=== PATIENT | male | born 1980 | race Caucasian/White ===

== ENCOUNTER 2018-01-29 22:22 | Inpatient (IN) ==
[2018-01-29 23:19] LABS: Baso % (Auto) 0.4 % (0.0-2.0); Eos # (Auto) 0.8 th/mm3 (0.0-0.4); Eos % (Auto) 9.1 % (0.0-4.0); Hematocrit 39.9 % (39.0-51.0); Hemoglobin 14.3 gm/dL (13.0-17.0); Lymph # (Auto) 3.1 th/mm3 (1.0-4.8); Mean Corpuscular Hemoglobin 33.3 pg (27.0-34.0); Mean Corpuscular Volume 92.5 fL (80.0-100.0); Mean Platelet Volume 8.8 fL (7.0-11.0); Mono # (Auto) 0.8 th/mm3 (0.0-0.9); Mono % (Auto) 8.9 % (0.0-8.0); Neut # (Auto) 4.4 th/mm3 (1.8-7.7); Neut % (Auto) 47.6 % (16.0-70.0); Platelet Count 249 th/mm3 (150-450); Red Blood Count 4.31 mil/mm3 (4.50-5.90); Red Cell Distribution Width 13.5 % (11.6-17.2); White Blood Count 9.2 th/mm3 (4.0-11.0)
[2018-01-29 23:33] LABS: Alcohol 282 mg/dL (0-5); Anion Gap 10 meq/L (5-15); Blood Urea Nitrogen 12 mg/dL (7-18); C-Reactive Protein 0.63 mg/dL (0.00-0.30); Calcium 7.9 mg/dL (8.5-10.1); Carbon Dioxide 23.9 meq/L (21.0-32.0); Chloride 108 meq/L (98-107); Glomerular Filtration Rate Greater Than 89 mL/min (>89); Glucose,Random 88 mg/dL (74-106); Potassium 3.8 meq/L (3.5-5.1); Sodium 142 meq/L (136-145)
[2018-01-29] MEDS ORDERED: Ampicillin/Sulbactam Inj 3 GM in Sodium Chloride 0.9% Inj 100 ML IV.SIG ONE (23:41)
[2018-01-29] MEDS ORDERED: Tetanus/Diphtheria Toxoid Adult Vaccine Inj 0.5 ML Vial IM ONE (23:45)
--- NOTE | 2018-01-29 23:45 | ED ---
HPI General Chief Complaint: Animal Bite Stated Complaint: Dog Bite x 5 days Time Seen by Provider: 01/29/18 22:34 Source: patient Mode of arrival: ambulatory Limitations: no limitations History of Present Illness HPI narrative: The patient is a 37-year-old male with no medical history presenting for evaluation of dog bites on bilateral hands that happened 6 days ago. Patient stated that his girlfriend is a nurse and that he started taking amoxicillin that she had at home and she was cleaning his wounds however it appears that his wounds are getting worse. Animal control was contacted and apparently the dog that was involved in the attack is fully vaccinated. The patient stated that the dog attacked him and his dogs came to his rescue when he was trying to separate the dogs he got mulled. He has bites on bilateral hands upper extremities lower extremities in various healing stages. Patient is here worried about his right middle finger and left pinky which he has not been able to flex since the accident MD complaint: Reports animal bite Onset (ago): day(s) Animal: dog Description of animal: immunizations UTD Mechanism: bite Bilateral: arm, hand and lower leg Pain description: Reports sharp Severity scale (1-10): 7 Context: Reports unprovoked Associated symptoms: Reports other (unable to flex left 5th digit) Related Data Patient tetanus UTD: No Home Medications Medication Instructions Recorded Confirmed No Known Home Medications 01/29/18 01/29/18 Allergies Allergy/AdvReac Type Severity Reaction Status Date / Time No Known Allergies Allergy Verified 01/29/18 22:30 Review of Systems ROS: all other systems reviewed are negative [facility] Medical History Medical History Patient denies medical problems (Acute) Surgical History Surgical History No history of previous surgery (Acute) Family History Family History Other Family history normal Social History Social History Substance History: Active Abuse Second Hand Smoke Exposure: No Smoking Status: Current every day smoker Tobacco Type: Cigarettes How Often Do You Have a Drink Containing Alcohol: 2 to 3 times a week Recent Travel in [facility] within the Last 8 Weeks: No Recent Out of Country Travel within the Last 8 Weeks: No Substance Abuse Detail Marijuana: Substance Use Status: Active Route Used Substance Abuse: Inhalation Substance Frequency: "few times a week" Reason for Use: Get High Immunization History Tetanus Immunization: >5 Years Exam Narrative Exam Narrative: GENERAL: Alert and oriented no distress SKIN: Focused skin assessment warm/dry. HEAD: Atraumatic. Normocephalic. EYES: Pupils equal and round. No scleral icterus. No injection or drainage. ENT: No nasal bleeding or discharge. Mucous membranes pink and moist. NECK: Trachea midline. No JVD. CARDIOVASCULAR: Regular rate and rhythm. No murmur appreciated. RESPIRATORY: No accessory muscle use. Clear to auscultation. Breath sounds equal bilaterally. GASTROINTESTINAL: Abdomen soft, non-tender, nondistended. Hepatic and splenic margins not palpable. MUSCULOSKELETAL: Patient with healing scabs on bilateral upper and lower extremities. Various healing stages. Right hand of the distal aspect of the middle finger With significant swelling ecchymotic with a healing wound that appears to be infected on the radial aspect of the finger. There is another dog bite on the distal aspect of the right fifth digit also appears infected and multiple other bite navarro and abrasions on proximal hand. Left hand with an infected bite over the MIP of the fifth digit. Patient is unable to flex the digit. Marked tenderness to palpation. cap refill intract NEUROLOGICAL: Awake and alert. No obvious cranial nerve deficits. Motor grossly within normal limits. Normal speech. PSYCHIATRIC: Appropriate mood and affect; insight and judgment normal. Course Initial Documented Vital Signs Temperature 97.6 F 01/29/18 22:24 Pulse Rate 105 H 01/29/18 22:24 Respiratory Rate 20 01/29/18 22:24 Blood Pressure 119/78 01/29/18 22:24 Pulse Oximetry 97 01/29/18 22:24 Last Documented Vital Signs Temperature 97.3 F L 01/30/18 03:47 Pulse Rate 79 01/30/18 03:47 Respiratory Rate 18 01/30/18 03:47 Blood Pressure 95/60 L 01/30/18 03:47 Pulse Oximetry 95 01/30/18 03:47 Medical Decision Making [facility] Narrative Medical decision making narrative: Patient with multiple injuries of bilateral hands that include a dislocation of the DIP on the left fifth digit as well as a fracture of the distal third right digit. Infection also noted he was started on Unasyn. Not appearing septic. No lactic acidosis. CRP of 0.63. CT of both hands was obtained due to extensive injury and readings are included in this chart. Tetanus was updated. Medical Screen Exam Complete: Yes Emergency Medical Condition: Yes Medical Records Medical records reviewed: Yes I reviewed the patient's medical records. Lab Data Lab results reviewed: Yes I reviewed the patient's lab results. Result diagrams: 01/29/18 23:05 01/29/18 23:05 Lab Results 01/29/18 01/29/18 01/29/18 Range/Units 23:05 23:05 23:05 WBC 9.2 (4.0-11.0) th/mm3 RBC 4.31 L (4.50-5.90) mil/mm3 Hgb 14.3 (13.0-17.0) gm/dL Hct 39.9 (39.0-51.0) % MCV 92.5 (80.0-100.0) fL MCH 33.3 (27.0-34.0) pg MCHC 36.0 (32.0-36.0) % RDW 13.5 (11.6-17.2) % Plt Count 249 (150-450) th/mm3 MPV 8.8 (7.0-11.0) fL Prelim Diff (Auto) Slide review pending Neut % (Auto) 47.6 (16.0-70.0) % Lymph % (Auto) 34.0 (9.0-44.0) % [place] % (Auto) 8.9 H (0.0-8.0) % Eos % (Auto) 9.1 H (0.0-4.0) % Baso % (Auto) 0.4 (0.0-2.0) % Neut # (Auto) 4.4 (1.8-7.7) th/mm3 Lymph # (Auto) 3.1 (1.0-4.8) th/mm3 [place] # (Auto) 0.8 (0.0-0.9) th/mm3 Eos # (Auto) 0.8 H (0.0-0.4) th/mm3 Baso # (Auto) 0.0 (0.0-0.2) th/mm3 WBC Differential Manual diff final Seg Neuts % (Manual) 54 (16-70) % Lymphocytes % (Manual) 34 (9-44) % Monocytes % (Manual) 6 (0-8) % Eosinophils % (Manual) 4 (0-4) % Basophils % (Manual) 1 (0-2) % Blast Cells % (Manual) 1 H (0-0) % Abs Neuts (Manual) 5.0 (1.8-7.7) th/mm3 Differential Comment . Platelet Estimate Normal (Normal) Platelet Morphology Normal (Normal) RBC Morphology Normal (Normal) ESR (0-15) mm/hr Sodium 142 (136-145) meq/L Potassium 3.8 (3.5-5.1) meq/L Chloride 108 H (98-107) meq/L Carbon Dioxide 23.9 (21.0-32.0) meq/L Anion Gap 10 (5-15) meq/L BUN 12 (7-18) mg/dL Creatinine 0.75 (0.60-1.30) mg/dL Estimated GFR Greater than 89 (>89) mL/min Random Glucose 88 (74-106) mg/dL Lactic Acid 1.5 (0.4-2.0) mmol/L Calcium 7.9 L (8.5-10.1) mg/dL C-Reactive Protein 0.63 H (0.00-0.30) mg/dL Serum Alcohol 282 H (0-5) mg/dL 01/29/18 Range/Units 23:05 WBC (4.0-11.0) th/mm3 RBC (4.50-5.90) mil/mm3 Hgb (13.0-17.0) gm/dL Hct (39.0-51.0) % MCV (80.0-100.0) fL MCH (27.0-34.0) pg MCHC (32.0-36.0) % RDW (11.6-17.2) % Plt Count (150-450) th/mm3 MPV (7.0-11.0) fL Prelim Diff (Auto) Neut % (Auto) (16.0-70.0) % Lymph % (Auto) (9.0-44.0) % [place] % (Auto) (0.0-8.0) % Eos % (Auto) (0.0-4.0) % Baso % (Auto) (0.0-2.0) % Neut # (Auto) (1.8-7.7) th/mm3 Lymph # (Auto) (1.0-4.8) th/mm3 [place] # (Auto) (0.0-0.9) th/mm3 Eos # (Auto) (0.0-0.4) th/mm3 Baso # (Auto) (0.0-0.2) th/mm3 WBC Differential Seg Neuts % (Manual) (16-70) % Lymphocytes % (Manual) (9-44) % Monocytes % (Manual) (0-8) % Eosinophils % (Manual) (0-4) % Basophils % (Manual) (0-2) % Blast Cells % (Manual) (0-0) % Abs Neuts (Manual) (1.8-7.7) th/mm3 Differential Comment Platelet Estimate (Normal) Platelet Morphology (Normal) RBC Morphology (Normal) ESR 3 (0-15) mm/hr Sodium (136-145) meq/L Potassium (3.5-5.1) meq/L Chloride (98-107) meq/L Carbon Dioxide (21.0-32.0) meq/L Anion Gap (5-15) meq/L BUN (7-18) mg/dL Creatinine (0.60-1.30) mg/dL Estimated GFR (>89) mL/min Random Glucose (74-106) mg/dL Lactic Acid (0.4-2.0) mmol/L Calcium (8.5-10.1) mg/dL C-Reactive Protein (0.00-0.30) mg/dL Serum Alcohol (0-5) mg/dL Imaging Data Radiologist's impression: Hand CT 01/29/18 22:49 CONCLUSION: 1. Fracture distal phalanx of the third finger with overlying soft tissues swelling. Hand CT 01/29/18 22:49 CONCLUSION: 1. Subluxation at the proximal interphalangeal joint of the fifth finger with some soft tissue swelling. No definite fracture or loculated fluid collection. Discharge Plan Discharge Disposition Patient Disposition: 30 Still Patient Discharge Condition Condition: Stable Discharge Details Diagnosis: Dog bite, Subluxation of left little finger, Fracture of finger of right hand, Alcohol intoxication Physicians Team ED Provider: Shaw Correa Primary Care Provider: Primary Care Kandy Mueller Attending Provider: Yareli Escalona Discharge Interventions Interventions: ED Discharge Assessment Last Done: 01/30/18 02:32 Vital Signs Last Done: 01/30/18 02:02 Status ED Status: Left Department Discharge Information Discharge Date/Time: 01/30/18 02:42
[2018-01-29 23:52] LABS: Blast Cells 1 % (0-0); Eosinophils 4 % (0-4); Lymphocytes 34 % (9-44); Monocytes 6 % (0-8); Platelet Estimate Normal (Normal); Platelet Morphology Normal (Normal); RBC Morphology Normal (Normal)
--- NOTE | 2018-01-30 00:20 | CT ---
EXAM DATE: 01/29/2018 11:54 PM EST AGE/SEX: 37 years / Male INDICATIONS: Dog bite, swelling. CLINICAL DATA: This is the patient's initial encounter. Patient reports that signs and symptoms have been present for 4 - 6 days and indicates a pain score of 5/10. MEDICAL/SURGICAL HISTORY: None. None. RADIATION DOSE: 3.37 CTDI (mGy) ; Combined studies COMPARISON: No prior exams available for comparison. TECHNIQUE: Multiple contiguous axial images were acquired using a multi-row detector CT scanner afte r the intravenous administration of 100 ml Omnipaque 350 (iohexol) nonionic water-soluble contrast a s a cumulative dose for multiple exams. Multiplanar reconstruction was performed in the sagittal an d coronal planes. Using automated exposure control and adjustment of the mA and/or kV according to p atient size, radiation dose was kept as low as reasonably achievable to obtain optimal diagnostic kiko lity images. DICOM format image data is available electronically for review and comparison. FINDINGS: There is a fracture of the distal phalanx of the third finger with overlying soft tissue swelling. No other fracture identified. No loculated fluid collections. CONCLUSION: 1. Fracture distal phalanx of the third finger with overlying soft tissues swelling. Electronically signed by: Reggie Sanchez MD 01/30/2018 12:19 AM EST
--- NOTE | 2018-01-30 00:39 | CT ---
EXAM DATE: 01/30/2018 12:07 AM EST AGE/SEX: 37 years / Male INDICATIONS: Dog bite 6 days ago, swelling. CLINICAL DATA: This is the patient's initial encounter. Patient reports that signs and symptoms have been present for 4 - 6 days and indicates a pain score of 5/10. MEDICAL/SURGICAL HISTORY: None. None. RADIATION DOSE: 3.37 CTDI (mGy) ; Combined studies COMPARISON: No prior exams available for comparison. TECHNIQUE: Multiple contiguous axial images were acquired using a multi-row detector CT scanner afte r the intravenous administration of 100 ml Omnipaque 350 (iohexol) nonionic water-soluble contrast a s a cumulative dose for multiple exams. Multiplanar reconstruction was performed in the sagittal an d coronal planes. Using automated exposure control and adjustment of the mA and/or kV according to p atient size, radiation dose was kept as low as reasonably achievable to obtain optimal diagnostic kiko lity images. DICOM format image data is available electronically for review and comparison. FINDINGS: There is posterior subluxation of the middle phalanx of the proximal phalangeal joints of fifth finge r with some overlying soft tissue swelling. No definite fractures identified. No loculated fluid iden tified to suggest abscess. CONCLUSION: 1. Subluxation at the proximal interphalangeal joint of the fifth finger with some soft tissue swell ing. No definite fracture or loculated fluid collection. Electronically signed by: Reggie Sanchez MD 01/30/2018 12:37 AM EST
[2018-01-30] MEDS ORDERED: Bisacodyl 10 MG Supp RECTAL PRN (02:15)
[2018-01-30] MEDS ORDERED: Haloperidol Inj 5 MG/ML Ampul IV.PUSH PRN (02:24)
[2018-01-30] MEDS ORDERED: LORazepam 1 MG Tablet PO PRN (02:24)
--- NOTE | 2018-01-30 02:26 | P.HP ---
History of Present Illness Service: [facility] Primary Care Physician: No Primary Care Physician History of Present Illness: 37-year-old male with no significant past medical history presents to the emergency department for the evaluation of bilateral upper extremity and hand wounds secondary to dog bites. The patient reports that on Friday he was attacked by a dog. He reports that then his dogs joined the fight and he sustained multiple lacerations and bites while trying to separate the dogs. [employer] was contacted and has located the animal and its food preparation worker. Per patient report, he was told by [employer] that the dog was up-to-date on his vaccinations including rabies. The patient denies any fevers or chills. Complains of significant third digit of the right hand pain. Unable to flex or extend that digit. Also complains of left fifth digit pain with inability to flex. No chest pain or shortness of breath. No abdominal pain. No nausea/ vomiting/diarrhea. No focal neurologic deficits. Inpatient Certification: I certify that the inpatient services were ordered in accordance with Medicare regulations governing the order. This includes certification that hospital inpatient services are reasonable and necessary and in the case of services not specified as inpatient-only under 42 CFR 419.22(n), that they are appropriately provided as inpatient services in accordance to with the 2-midnight benchmark under 43 CFR 412.3(e) Estimated Total Length of Stay (Days): 2 Plans for Post Hospital Care: Not yet determined Review of Systems All other systems reviewed negative except as stated in HPI [facility] - History History Provided By: Patient - Medical History Medical History: Medical History (Last Reviewed 01/30/18 @ 02:20 by Yareli Escalona MD) Patient denies medical problems - Surgical History Surgical History: Surgical History (Last Reviewed 01/30/18 @ 02:20 by Yareli Escalona MD) No history of previous surgery - Family History Family History: Family History (Last Updated 01/30/18 @ 02:20 by Yareli Escalona MD) Other Family history normal - Tobacco History Second Hand Smoke Exposure: No Tobacco Use In Past 30 Days: Yes Smoking Status: Current every day smoker Tobacco Type: Cigarettes - Alcohol History How Often Do You Have a Drink Containing Alcohol: 2 to 3 times a week - Substance Use History Substance History: Active Abuse - Substance Use Type Marijuana Status: Active Route Used: Inhalation Frequency: "few times a week" Reason for Use: Get High - Travel History Recent Travel in the [place] Within the Last 8 Weeks: No Recent Travel Out of the Country Within the Last 8 Weeks: No - Immunization History Tetanus Immunization: >5 Years Medications and Allergies Active Medications: Active Medications Acetaminophen (Tylenol) 650 mg PO Q4H PRN PRN Reason: Temp > 100.4, pain Al Hydroxide/Mg Hydroxide (Milk Of Magnesia Liq) 30 ml PO Q12H PRN PRN Reason: Mild Constipation Bisacodyl (Dulcolax Supp) 10 mg RECTAL DAILY PRN PRN Reason: SEVERE CONSITIPATION Ampicillin Sodium/Sulbactam (Sodium 3 gm/ Sodium Chloride) 100 mls @ 200 mls/ hr IV.SIG Q6H BOUCHRA Sodium Chloride (Ns Inj) 1,000 mls @ 100 mls/hr IV.CONT .Q10H BOUCHRA Lactulose (Lactulose Liq) 30 ml PO DAILY PRN PRN Reason: SEVERE CONSITIPATION Ondansetron HCl (Zofran Inj) 4 mg IV.PUSH Q6H PRN PRN Reason: NAUSEA OR VOMITING Senna/Docusate Sodium (Radha-Colace) 1 tab PO BID BOUCHRA Sennosides (Senokot) 17.2 mg PO Q12H PRN PRN Reason: Moderate Constipation Allergies Allergy/AdvReac Type Severity Reaction Status Date / Time No Known Allergies Allergy Verified 01/29/18 22:30 Home Medications Medication Instructions Recorded Confirmed Type No Known Home Medications 01/29/18 01/29/18 History Exam Vital signs: Vital Signs 01/29/18 22:24 01/30/18 02:02 Temperature 97.6 F Pulse Rate 105 H 91 H Respiratory Rate 20 16 Blood Pressure 119/78 94/51 L Pulse Oximetry 97 97 Intake & Output 01/29/18 01/29/18 01/30/18 06:59 18:59 06:59 Intake Total 100 / 100 Balance 100 / 100 Weight 72.575 kg Intake: IV 100 / 100 Unasyn Inj 3 GM In NS Inj 100 100 / 100 ML @ 200 mls/hr IV.SIG ONCE ONE Rx#:[id number] Narrative: Gen.: No acute distress Head: Normocephalic. Atraumatic. EENT: Pupils equal round and reactive to light. Nose without drainage. Airway intact. Throat without injection. Cardiovascular: Regular rate and rhythm. No murmurs, rubs or gallops. Respiratory: Lungs clear to auscultation bilaterally. No wheezes or rhonchi. Abdomen: Soft, nontender, nondistended. No peritoneal signs. Musculoskeletal: No edema. Skin: Multiple abrasions and lacerations scattered throughout the bilateral hands. Third digit right hand with significant distal swelling and hematoma. Neuro: Sensory and motor grossly intact. Cranial nerves II through XII grossly intact. Results - Labs CBC & Chem 7: 01/29/18 23:05 01/29/18 23:05 Labs: Laboratory Results - last 24 hr 01/29/18 01/29/18 01/29/18 23:05 23:05 23:05 WBC 9.2 RBC 4.31 L Hgb 14.3 Hct 39.9 MCV 92.5 MCH 33.3 MCHC 36.0 RDW 13.5 Plt Count 249 MPV 8.8 Prelim Diff (Auto) Slide review pending Neut % (Auto) 47.6 Lymph % (Auto) 34.0 [place] % (Auto) 8.9 H Eos % (Auto) 9.1 H Baso % (Auto) 0.4 Neut # (Auto) 4.4 Lymph # (Auto) 3.1 [place] # (Auto) 0.8 Eos # (Auto) 0.8 H Baso # (Auto) 0.0 WBC Differential Manual diff final Seg Neuts % (Manual) 54 Lymphocytes % (Manual) 34 Monocytes % (Manual) 6 Eosinophils % (Manual) 4 Basophils % (Manual) 1 Blast Cells % (Manual) 1 H Abs Neuts (Manual) 5.0 Differential Comment . Platelet Estimate Normal Platelet Morphology Normal RBC Morphology Normal ESR Sodium 142 Potassium 3.8 Chloride 108 H Carbon Dioxide 23.9 Anion Gap 10 BUN 12 Creatinine 0.75 Estimated GFR Greater than 89 Random Glucose 88 Lactic Acid 1.5 Calcium 7.9 L C-Reactive Protein 0.63 H Serum Alcohol 282 H 01/29/18 23:05 WBC RBC Hgb Hct MCV MCH MCHC RDW Plt Count MPV Prelim Diff (Auto) Neut % (Auto) Lymph % (Auto) [place] % (Auto) Eos % (Auto) Baso % (Auto) Neut # (Auto) Lymph # (Auto) [place] # (Auto) Eos # (Auto) Baso # (Auto) WBC Differential Seg Neuts % (Manual) Lymphocytes % (Manual) Monocytes % (Manual) Eosinophils % (Manual) Basophils % (Manual) Blast Cells % (Manual) Abs Neuts (Manual) Differential Comment Platelet Estimate Platelet Morphology RBC Morphology ESR 3 Sodium Potassium Chloride Carbon Dioxide Anion Gap BUN Creatinine Estimated GFR Random Glucose Lactic Acid Calcium C-Reactive Protein Serum Alcohol - Imaging Impressions Hand CT 01/29/18 22:49 CONCLUSION: 1. Fracture distal phalanx of the third finger with overlying soft tissues swelling. Hand CT 01/29/18 22:49 CONCLUSION: 1. Subluxation at the proximal interphalangeal joint of the fifth finger with some soft tissue swelling. No definite fracture or loculated fluid collection. Caprini VTE Risk Assessment Caprini VTE Risk Assessment: No/Low Risk (score <= 1) Caprini Risk Assessment Model: Point Value = 1 Point Value = 2 Point Value = 3 Point Value = 5 Age 41-60 Minor surgery BMI > 25 kg/m2 Swollen legs Varicose veins or History of unexplained or recurrent spontaneous Oral contraceptives or hormone replacement Sepsis (< 1 month) Serious lung disease, including pneumonia (< 1 month) Abnormal pulmonary function Acute myocardial infarction Congestive heart failure (< 1 month) History of inflammatory bowel disease Medical patient at bed rest Age 61-74 Arthroscopic surgery Major open surgery (> 45 min) Laparoscopic surgery (> 45 min) Malignancy Confined to bed (> 72 hours) Immobilizing plaster cast Central venous access Age >= 75 History of VTE Family history of VTE Factor V Leiden Prothrombin [id number] Lupus anticoagulant Anticardiolipin antibodies Elevated serum homocysteine Heparin-induced thrombocytopenia Other congenital or acquired thrombophilia Stroke (< 1 month) Elective arthroplasty Hip, pelvis, or leg fracture Acute spinal cord injury (< 1 month) Prophylaxis Regimen: Total Risk Factor Score Risk Level Prophylaxis Regimen 0-1 Low Early ambulation 2 Moderate Order ONE of the following: *Sequential Compression Device (SCD) *Heparin 5000 units SQ BID 3-4 Higher Order ONE of the following medications: *Heparin 5000 units SQ TID *Enoxaparin/Lovenox 40 mg SQ daily (WT < 150 kg, CrCl > 30 mL/min) *Enoxaparin/Lovenox 30 mg SQ daily (WT < 150 kg, CrCl > 10-29 mL/min) *Enoxaparin/Lovenox 30 mg SQ BID (WT < 150 kg, CrCl > 30 mL/min) AND/OR *Sequential Compression Device (SCD) 5 or more Highest Order ONE of the following medications: *Heparin 5000 units SQ TID (Preferred with Epidurals) *Enoxaparin/Lovenox 40 mg SQ daily (WT < 150 kg, CrCl > 30 mL/min) *Enoxaparin/Lovenox 30 mg SQ daily (WT < 150 kg, CrCl > 10-29 mL/min) *Enoxaparin/Lovenox 30 mg SQ BID (WT < 150 kg, CrCl > 30 mL/min) AND *Sequential Compression Device (SCD) Assessment and Plan - Plan Assessment/plan: 1. Dog bite/finger fracture Right hand CT significant for fracture of the distal phalanx along the third finger with overlying soft tissue swelling. Left hand CT significant for subluxation at the PIP joint of the fifth finger with some soft tissue swelling. Unasyn Hand surgery consulted, appreciate recommendations Wound/blood cultures pending 2. Alcohol intoxication Blood alcohol level 282 on admission [facility] protocol Thiamine/multivitamin Monitor for signs of withdrawal FEN N.p.o. NS at 100 cc/hour Electrolytes: Monitor and replete as needed
[2018-01-30] MEDS: Sod Chloride 0.9% Inj 1,000 ML IV.CONT SCH ×2 (02:41→13:52)
[2018-01-30] MEDS: Acetaminophen 325 MG Tablet PO PRN (03:51)
[2018-01-30] MEDS: Ampicillin/Sulbactam Inj 3 GM in Sodium Chloride 0.9% Inj 100 ML IV.SIG SCH ×3 (05:22→18:00)
[2018-01-30 08:05] LABS: INR 1.1 Ratio; Prothrombin Time 10.8 sec (9.8-11.6)
--- NOTE | 2018-01-30 09:53 | P.PNIM ---
Subjective Interval history: 37yo m w multiple dog bit wounds to b/l upper ext last friday. He has been taking amoxil at home since then, but he has had worsening pain and swelling of right hand and some on left hand, ct in ER showing no abscess but swelling and fracture of distal third fringer and subluxation at pop joint of 5th finger pt seen and examined, states he is doing ok, no nv, no sob, no cp, pain in hands mild improved, no fever Physical Exam Vital signs: Last Vital Signs Temp 98.0 F 01/30/18 08:00 Pulse 86 01/30/18 08:00 Resp 18 01/30/18 08:00 BP 103/59 L 01/30/18 08:00 Pulse Ox 97 01/30/18 08:00 Intake & Output 01/28/18 01/29/18 01/30/18 01/31/18 06:59 06:59 06:59 06:59 Intake Total 620 / 620 Balance 620 / 620 Weight 65.1 kg pleasant [id number] w m nad heart s1s2 reg lungs coarse bs, no wrr, full expansion abd soft nondt pos bs ext b./l uex w multiple abasions and superficial lacerations, right hand nail subungal edema and swelling, left hand 5th digit pain and swelling, warm to touch, pulses intact and sensation appears intact, decreased rom digits due to pain edema R >L no radha edema Results Labs CBC & Chem 7: 01/29/18 23:05 01/29/18 23:05 Imaging Imaging: Impressions Hand CT 01/29/18 22:49 RIGHT hand CONCLUSION: 1. Fracture distal phalanx of the third finger with overlying soft tissues swelling. Hand CT 01/29/18 22:49 LEFT hand CONCLUSION: 1. Subluxation at the proximal interphalangeal joint of the fifth finger with some soft tissue swelling. No definite fracture or loculated fluid collection. Assessment and Plan Plan ACUTE CELLULITIS of Right and left hand due to dog bite injury with distal 3rd finger fracture and subungal hematoma concern for tenosynovitis - failed outpatient ampicillin, cont iv unaxyn, fu cx, wound care, pain control, hand surgery consult ALCOHOL INTOXICATION - resolved, Blood alcohol level 282 on admission [facility] protocol Thiamine/multivitamin Monitor for signs of withdrawal TOBACCO USE nicotine addiction- cessation counseled, nicoderm topically Progress Note: Quality VTE Deep Vein Thrombosis/Pulmonary Embolism Present on Admission: No
--- NOTE | 2018-01-30 10:58 | XR ---
EXAM DATE: 01/30/2018 10:43 AM EST AGE/SEX: 37 years / Male INDICATIONS: Pre op for irrigation and debriedment. CLINICAL DATA: This is the patient's subsequent encounter. Patient reports that signs and symptoms h ave been present for 1 week and indicates a pain score of 5/10. MEDICAL/SURGICAL HISTORY: . Dog bite. None. [place] [facility] [place]. . FINDINGS: Fracture of the third distal phalanx with regional soft tissue swelling. Osseous density is normal. Soft tissues are unremarkable. No radiopaque foreign bodies seen. CONCLUSION: 1. Redemonstration of distal third phalanx fracture without radiopaque foreign bodies. Electronically signed by: Mateus Holland MD 01/30/2018 10:56 AM EST
--- NOTE | 2018-01-30 11:01 | XR ---
EXAM DATE: 01/30/2018 10:41 AM EST AGE/SEX: 37 years / Male INDICATIONS: Pre op for irrigation and debriedment. CLINICAL DATA: This is the patient's subsequent encounter. Patient reports that signs and symptoms h ave been present for 1 week and indicates a pain score of 5/10. MEDICAL/SURGICAL HISTORY: . Dog bite. None. COMPARISON: [facility] – [place], [place] HAND LEFT W CONTRAST, 01/29/2018. . FINDINGS: Redemonstration of subluxation of the fifth PIP joint. Associated soft tissue swelling. Osseous struc tures appear intact. No radiopaque foreign bodies seen. CONCLUSION: 1. Subluxation of the fifth PIP joint with associated soft tissue swelling. No radiopaque foreign brayan dies. Electronically signed by: Mateus Holland MD 01/30/2018 11:00 AM EST
[2018-01-30] MEDS ORDERED: Famotidine PF Inj 20 MG/2 ML Vial ONE (11:06)
--- NOTE | 2018-01-30 11:47 | MB ---
cc: ,Tien Roach DATE: 01/30/2018 CHIEF COMPLAINT: Bilateral dog bites to the hand. CONSULTING PHYSICIAN: Tien Roach MD. REQUESTING PHYSICIAN: Yareli Escalona MD. HISTORY OF PRESENT ILLNESS: Mr. Mojica is a 37-year-old gentleman who presents after having sustained dog bites to bilateral hands. He notes that last 01/24/2018, he notes that his dogs were in a fight; and, while he was trying to break up the fight, he sustained multiple lacerations to bilateral hands. He noted increasing pain localized to bilateral hands resulting in presentation to the ER yesterday evening. Orthopedic hand surgery consultation was requested for evaluation of the bilateral hands. On presentation, he realized the pain rated to 5/10 severity. Of significance, he notes a prior left small finger PIP dislocation sustained a number of years ago and underwent a self reduction. He now notes difficulty with active flexion of the small finger PIP joint. Additionally, pain localized to the right middle finger. He has not been treated to date. No oral antibiotics today. No medical evaluation. PAST MEDICAL HISTORY: None. PAST SURGICAL HISTORY: None. FAMILY HISTORY: Noncontributory. SOCIAL HISTORY: Endorses current everyday cigarette use. Endorses social alcohol use. MEDICATIONS: None. ALLERGIES: NO KNOWN DRUG ALLERGIES. REVIEW OF SYSTEMS: GENERAL: No fever or chills. MUSCULOSKELETAL: Bilateral hand pain. NEUROLOGIC: No numbness and tingling. CARDIAC: No chest pain. LUNGS: No cough or wheezing. PSYCHIATRIC: No anxiety or depression. PHYSICAL EXAMINATION: GENERAL: He is alert and oriented x3. PSYCHIATRIC: Normal mood and affect. MUSCULOSKELETAL: Focused evaluation of the bilateral hands demonstrates moderate edema with dorsal erythema with multiple lacerations extending over the dorsum of all digits. The left small finger has a circumferential fusiform edema. There is no evidence of flexor tenosynovitis. No pain along the flexor tendon sheath along the volar aspect of the finger extending to the palm. He is able to maintain active flexion of the FDP and FDS of the small finger, when the finger is brought into passive flexion. However, he is not able to activate FDP and FDS from an extended position of the small finger. Otherwise, FDP and FDS is intact throughout all remaining digits. Additionally, EDC is intact. There is no evident deep laceration. There is no evidence of septic joint. There is a raised nail plate on the right middle finger with evident nail bed injury with underlying ecchymoses. There is also circumferential erythema along the nail folds. Sensation is intact to the median, radial, ulnar nerve distribution bilaterally. No apparent sensory deficit. CARDIAC: Two plus radial pulse, regular rate and rhythm to the heart. LUNGS: Nonlabored breathing. SKIN: Erythema as noted above. Edema as noted above. IMAGING: Three views of bilateral hands were obtained including CT of bilateral hands. There is no evident abscess appreciated on the CT scan. X-rays are significant for a tuft fracture involving the distal phalanx of the middle finger and a dorsal subluxation without dislocation of the PIP joint of the small finger, without evident fracture. ASSESSMENT: 1. Bilateral hand dog bites. 2. Bilateral hand cellulitis. 3. Left small finger proximal interphalangeal joint subluxation possible secondary to chronic injury versus [id number] injury. 4. Right middle finger distal phalanx tuft fracture with underlying nail bed injury. PLAN: We had a thorough discussion with Mr. Mojica regarding the above diagnoses. We discussed the recommendations were to take him back to the operating room for a right middle finger nail plate removal and exploration of the nail bed with nail bed repair. Additionally, we will perform a fluoroscopic evaluation of the left small finger. We will consider a dorsal blocking splint of the left small finger pending our evaluation. We discussed continuing recommendations for optimizing his medical management with IV antibiotics given cellulitis. He may transition to an oral regimen after 48-72 hours of clinical improvement. I will see the patient back in 7 to 10 days for a wound check and repeat evaluation. All questions and concerns were addressed at bedside. Tien Roach MD, CM/iglesia , 11:10 AM , 11:20 AM
[2018-01-30] MEDS ORDERED: fentaNYL Citrate Inj 100 MCG/2 ML Ampul ONE (12:46)
[2018-01-30] MEDS ORDERED: Morphine Inj 4 MG/ML Vial ONE (12:46)
--- NOTE | 2018-01-30 12:56 | MP ---
cc: ,Tien Roach DATE OF OPERATION: 01/30/2018 PREOPERATIVE DIAGNOSES: 1. Bilateral hand dog bites with multiple lacerations. 2. Bilateral hand cellulitis secondary to dog bites. 3. Left small finger proximal interphalangeal joint subluxation with volar plate injury. 4. Right middle finger open distal phalanx fracture with nail bed injury. POSTOPERATIVE DIAGNOSES: 1. Bilateral hand dog bites with multiple lacerations. 2. Bilateral hand cellulitis secondary to dog bites. 3. Left small finger proximal interphalangeal joint subluxation with volar plate injury. 4. Right middle finger open distal phalanx fracture with nail bed injury. OPERATION PERFORMED: 1. Closed treatment of left small finger proximal interphalangeal dislocation. 2. Right middle finger irrigation and debridement of open fracture including skin, subcutaneous tissue and bone. 3. Right middle finger nail bed repair. 4. Right middle finger closed treatment of distal phalanx fracture. 5. Left small finger examination under fluoroscopy. SURGEON: Tien Roach MD ANESTHESIA: General. SPECIMENS: None. ESTIMATED BLOOD LOSS: Minimal. FLUIDS: Per anesthesia record. URINE OUTPUT: Not recorded. TOURNIQUET: 250 mmHg for 22 minutes. COMPLICATIONS: None. IMPLANTS: None. INDICATIONS FOR PROCEDURE: Please see history and physical for complete details. In summary, Mr. Mojica presented to [facility] after having sustained a dog bite injury on Friday. His evaluation was significant for cellulitis with dorsal full-thickness lacerations of bilateral hands. An orthopedic hand surgery consultation was requested for evaluation of his left small finger given difficulty initiating active flexion as well as right middle finger open fracture. We discussed the recommendations at bedside regarding irrigation and debridement of open fracture, removal of the nail plate and nail bed repair. We additionally discussed examination under anesthesia with fluoroscopy of the left small finger. We discussed the likelihood of a volar plate injury. He was able to maintain active flexion; however, he was unable to initiate flexion at the PIP joint. Additionally, an MRI has been ordered postoperatively to rule out FDS avulsion injury. Relevant risks, benefits, expected postoperative course of surgical management were reviewed. Risks include, but are not limited to damage to surrounding blood vessels and nerves, infection, wound healing issues, need for more surgery including possible flexor tendon repair pending MRI evaluation, failure of nail regrowth, nail plate deformity and failure of fracture union. An ample opportunity was offered for his questions to be answered and all his questions were answered to his apparent satisfaction. He agreed to proceed with surgery as per consent. DESCRIPTION OF PROCEDURE: The patient was identified in the preoperative holding area and the operative site was marked. He was then brought back to the operating room under the care of the anesthesiology team and then positioned supine on the OR table. All bony prominences were padded. A per protocol timeout was performed during which the patient's identity, site, side and nature of procedure were confirmed. General anesthesia was induced without untoward effect and an LMA was placed. The right upper extremity was then prepped and draped in routine strict and sterile fashion using triple prep solution and occlusive draping. Attention was first turned to the right middle finger. The upper extremity was exsanguinated. The pneumatic tourniquet was then inflated to 250 mmHg and remained inflated through the duration of the case. The nail plate was then removed with use of a [place]. This exposed the underlying nail bed. There was a stellate-appearing laceration of the nail bed. There were 2 separate distinct lacerations, 1 proximally at the level of the germinal matrix and 1 more distally at the level of the sterile matrix. A curette was utilized to open the 2 lacerations. Interposed hematoma and debris were removed. There was gross contamination including multiple hairs within the wound. Additionally, the corners of the lateral nail fold were sharply incised in order to provide exposure to the germinal matrix. At this point in time, a mechanical debridement was performed of the skin, subcutaneous tissue, nail bed as well as underlying bone of the distal phalanx fracture. This was performed with the use of a curette. Additionally, 1 liter of normal saline solution was lavaged through the wound. Debris was cleared from the wound. Nonviable skin was sharply excised. Attention was then turned to the nail bed repair. The nail bed was reapproximated and then the bed was repaired with simple 5-0 plain gut suture. This was repaired both for the proximal laceration which involved the germinal matrix and additionally for the distal laceration involving the sterile matrix. This achieved excellent approximation of the nail bed. The corners of the nail folds were then reapproximated and closed with 4-0 Prolene suture. The lateral nail fold was additionally reapproximated with 4-0 Prolene suture. A decision was made not to place a percutaneous K-wire through the distal phalanx given the history of superimposed cellulitis. Attention was then turned to dressing placement. A suture packet was then placed underneath the proximal nail fold to maintain patency. Xeroform, 4 x 4 and a well-padded finger splint were then applied. This completed the portion of the case involving the right hand. Attention was then turned to the left hand. C-arm fluoroscopy was then brought into the field and evaluation of fluoroscopy was then performed of the small finger. There was hyperextension of the small finger at the PIP joint to the point of dislocation. The joint did appear to be stable and reduced at 15 degrees of flexion and maintained this reduction through full flexion. At 0 degrees of extension, there was dorsal subluxation of the middle phalanx on the proximal phalanx. As such, a dorsal blocking splint to the PIP joint of the small finger in 15 degrees of flexion was placed. This completed the case. At the conclusion of the case, all sponge and needle counts were correct x 2. I was present for the entire duration of the case. DISPOSITION: The patient was reversed from anesthesia, extubated and transferred to the PACU in stable condition. POSTOPERATIVE RECOMMENDATIONS: 1. Strict nonweightbearing to the left upper extremity, 5-pound weightbearing to the right upper extremity. 2. Maintain upper extremity elevation for edema control. 3. Continue IV antibiotics with transition to an oral regimen pending medicine recommendations for treatment of superimposed cellulitis. 4. Maintain postoperative dressings to the bilateral hands intact. Do not remove the dressings. Do not get the dressings wet. 5. Plan for discharge pending medicine clearance with oral antibiotics. A prescription for [place], dispense #30, has been provided and is on the chart. 6. Additionally discharge instructions from a hand surgery standpoint are in printed form on the chart. 7. Plan for a followup with Dr. Roach in 10-14 days. A referral for hand therapy at [facility] has been provided with anticipated followup in 3-5 days for transition to a custom made splint on the left and a custom made splint on the right with initiation of a range of motion program. All questions and concerns were addressed at bedside. Tien Roach MD, CM/ramon , 12:18 PM , 12:33 PM
[2018-01-30] MEDS: Multivitamin/Minerals Therapeutic Tablet PO SCH (13:47)
[2018-01-30] MEDS: Folic Acid 1 MG Tablet PO SCH (13:48)
[2018-01-30] MEDS: Senna/Docusate Sodium 8.6/50 MG Tablet PO SCH ×2 (13:50→21:51)
--- NOTE | 2018-01-30 19:05 | MR ---
EXAM DATE: 01/30/2018 6:46 PM EST AGE/SEX: 37 years / Male INDICATIONS: Internal derangement. Multiple dog bites. Third and fourth digit wrapped and splinte d. CLINICAL DATA: This is the patient's initial encounter. Patient reports that signs and symptoms have been present for 1 day and indicates a pain score of 0/10. MEDICAL/SURGICAL HISTORY: None. None. COMPARISON: No prior exams available for comparison. TECHNIQUE: Multiplanar, multisequence MRI examination was performed without contrast. FINDINGS: Small fluid seen in the flexor tendon sheath of the second through fifth digits. There is no tear. At and just distal to the fourth and fifth metacarpophalangeal joints are dorsal subcutaneous fluid c ollections that measure approximately 6 mm in maximum thickness. These are roughly 4.4 cm in length a t the fourth metacarpophalangeal joint and 3.3 cm in length at the fifth metacarpal phalangeal joint, best seen on series 5 images 12 and 7, respectively. Just a thin sliver of fluid in the similar loca tion of the long finger. This fluid may be in the extensor tendon sheaths but is more likely just in the subcutaneous tissues. No tendon tears are demonstrated. No evidence of collateral ligament rupture. No fractures or subluxa tions are demonstrated. No joint effusions. No evidence of osteomyelitis. CONCLUSION: 1. Intact left hand. No osteomyelitis. 2. Fluid in the soft tissues dorsal to the third, fourth and fifth metacarpal phalangeal joint as de scribed. These are nonspecific. Developing abscesses cannot excludable. Superficial margin of these f luid collections primarily just beneath the skin and probably subcutaneous rather than in the extenso r tendon sheaths. 3. Small flexor tendon sheath fluid of each finger. Electronically signed by: Armando Armendariz MD 01/30/2018 7:04 PM EST
[2018-01-30] MEDS: Ketorolac Inj 30 MG/ML (IVP) Vial IV.PUSH PRN (21:44)
[2018-01-31] MEDS: Ampicillin/Sulbactam Inj 3 GM in Sodium Chloride 0.9% Inj 100 ML IV.SIG SCH ×5 (00:15→23:08)
[2018-01-31] MEDS: Sod Chloride 0.9% Inj 1,000 ML IV.CONT SCH ×3 (00:27→18:00)
[2018-01-31] MEDS: Ketorolac Inj 30 MG/ML (IVP) Vial IV.PUSH PRN ×3 (05:05→17:30)
[2018-01-31] MEDS: Folic Acid 1 MG Tablet PO SCH (08:04)
[2018-01-31] MEDS: Senna/Docusate Sodium 8.6/50 MG Tablet PO SCH ×2 (08:04→20:27)
[2018-01-31] MEDS: Multivitamin/Minerals Therapeutic Tablet PO SCH (08:04)
--- NOTE | 2018-01-31 08:58 | P.PNOP ---
Subjective Interval history: No acute overnight events. Pain well controlled this morning. Denies current complaints. Physical Exam Vital signs: Vital Signs 01/30/18 12:13 01/30/18 12:30 01/30/18 12:45 Temperature 97.3 F L Pulse Rate 92 H 81 79 Respiratory Rate 18 18 18 Blood Pressure 124/79 121/79 127/81 Pulse Oximetry 99 99 99 01/30/18 13:00 01/30/18 16:00 01/30/18 20:00 Temperature 97.6 F 97.7 F 97.7 F Pulse Rate 75 74 68 Respiratory Rate 18 18 18 Blood Pressure 132/83 134/72 125/81 Pulse Oximetry 99 93 L 98 01/31/18 00:00 01/31/18 04:00 01/31/18 08:00 Temperature 97.6 F 97.4 F L 98.4 F Pulse Rate 65 62 73 Respiratory Rate 18 18 17 Blood Pressure 129/73 131/72 130/81 Pulse Oximetry 97 95 99 Intake & Output 01/30/18 01/31/18 01/31/18 18:59 06:59 18:59 Intake Total 2120 / 2120 520 / 520 Output Total 405 / 405 Balance 1715 / 1715 520 / 520 Weight 65.9 kg Intake: IV 1100 / 1100 200 / 200 NS Inj 1,000 ML @ 100 mls/hr IV 1000 / 1000 .CONT .Q10H [facility] Rx#:[id number] Unasyn Inj 3 GM In NS Inj 100 100 / 100 200 / 200 ML @ 200 mls/hr IV.SIG Q6H [facility] Rx#:[id number] Oral 720 / 720 320 / 320 Anesthesia Amount 300 / 300 Output: Urine 400 / 400 Estimated Blood Loss 5 / 5 Other: # Voids 1 3 Date of Last Bowel Movement 01/29/18 - Routine Extremities Exam Comments: Focused evaluation of bilateral upper extremities demonstrates dressings, clean dry and intact. Sensation intact to exposed digits to the median, radial, ulnar nerve distribution. No interval worsening of bilateral hand dorsal cellulitis. Hands are warm well perfused. Results - Labs CBC & Chem 7: 01/29/18 23:05 01/29/18 23:05 Microbiology 01/29/18 23:05 Blood - Peripheral Aerobic Blood Culture - Preliminary No growth in 1 day 01/29/18 23:05 Blood - Peripheral Anaerobic Blood Culture - Preliminary No growth in 1 day 01/29/18 23:00 Blood - Peripheral Aerobic Blood Culture - Preliminary No growth in 1 day 01/29/18 23:00 Blood - Peripheral Anaerobic Blood Culture - Preliminary No growth in 1 day 01/29/18 23:05 Wound - Finger Gram Stain - Final - Imaging Impressions Hand MRI 01/30/18 00:00 CONCLUSION: 1. Intact left hand. No osteomyelitis. 2. Fluid in the soft tissues dorsal to the third, fourth and fifth metacarpal phalangeal joint as described. These are nonspecific. Developing abscesses cannot excludable. Superficial margin of these fluid collections primarily just beneath the skin and probably subcutaneous rather than in the extensor tendon sheaths. 3. Small flexor tendon sheath fluid of each finger. Hand X-Ray 01/30/18 08:47 CONCLUSION: 1. Subluxation of the fifth PIP joint with associated soft tissue swelling. No radiopaque foreign bodies. Hand X-Ray 01/30/18 08:51 CONCLUSION: 1. Redemonstration of distal third phalanx fracture without radiopaque foreign bodies. Assessment and Plan - Assessment and Plan DIAGNOSES: 1. Bilateral hand dog bites with multiple lacerations. 2. Bilateral hand cellulitis secondary to dog bites. 3. Left small finger proximal interphalangeal joint subluxation with volar plate injury. 4. Right middle finger open distal phalanx fracture with nail bed injury. OPERATION PERFORMED: 1. Closed treatment of left small finger proximal interphalangeal dislocation. 2. Right middle finger irrigation and debridement of open fracture including skin, subcutaneous tissue and bone. 3. Right middle finger nail bed repair. 4. Right middle finger closed treatment of distal phalanx fracture. 5. Left small finger examination under fluoroscopy. 1. Strict nonweightbearing to the left upper extremity, 5-pound weightbearing to the right upper extremity. 2. Maintain upper extremity elevation for edema control. 3. Continue IV antibiotics with transition to an oral regimen pending medicine recommendations for treatment of superimposed cellulitis. 4. Maintain postoperative dressings to the bilateral hands intact. Do not remove the dressings. Do not get the dressings wet. 5. Plan for discharge pending medicine clearance with oral antibiotics. A prescription for [employer], dispense #30, has been provided and is on the chart. 6. Additionally discharge instructions from a hand surgery standpoint are in printed form on the chart. 7. Plan for a followup with Dr. Roach in 10-14 days. A referral for hand therapy at [facility] has been provided with anticipated followup in 3-5 days for transition to a custom made splint on the left and a custom made splint on the right with initiation of a range of motion program. All questions and concerns were addressed at bedside.
--- NOTE | 2018-01-31 15:58 | P.PNIM ---
Subjective Interval history: 37yo m w multiple dog bite wounds to b/l upper ext last friday. He has been taking amoxil at home since then, but he has had worsening pain and swelling of right hand and some on left hand, ct in ER showing no abscess but swelling and fracture of distal third fringer and subluxation at pop joint of 5th finger, post op 01/30/18. pt seen and examined, states he is doing ok, having some pain and swelling left hand, no numbness, no sob, no cp. Physical Exam Vital signs: Last Vital Signs Temp 98.3 F 01/31/18 12:00 Pulse 66 01/31/18 12:00 Resp 18 01/31/18 12:00 BP 113/63 01/31/18 12:00 Pulse Ox 98 01/31/18 12:00 Intake & Output 01/29/18 01/30/18 01/31/18 02/01/18 06:59 06:59 06:59 06:59 Intake Total 620 / 620 2640 / 2640 100 / 100 Output Total 405 / 405 Balance 620 / 620 2235 / 2235 100 / 100 Weight 65.1 kg 65.9 kg wdwn 37yo m nad aaox3 pleasant heart s1s2 reg lungs clear no wrr abd soft nondt pos bs ext no edema lower, b/l hands bandaged, radial pulses intact Results Labs CBC & Chem 7: 01/29/18 23:05 01/29/18 23:05 Labs: Microbiology 01/29/18 23:05 Wound - Finger Gram Stain - Final 01/29/18 23:05 Wound - Finger Wound Culture - Preliminary Pasteurella species 01/29/18 23:05 Blood - Peripheral Aerobic Blood Culture - Preliminary No growth in 2 days 01/29/18 23:05 Blood - Peripheral Anaerobic Blood Culture - Preliminary No growth in 2 days 01/29/18 23:00 Blood - Peripheral Aerobic Blood Culture - Preliminary No growth in 2 days 01/29/18 23:00 Blood - Peripheral Anaerobic Blood Culture - Preliminary No growth in 2 days Imaging Imaging: Impressions Hand MRI 01/30/18 00:00 CONCLUSION: 1. Intact left hand. No osteomyelitis. 2. Fluid in the soft tissues dorsal to the third, fourth and fifth metacarpal phalangeal joint as described. These are nonspecific. Developing abscesses cannot excludable. Superficial margin of these fluid collections primarily just beneath the skin and probably subcutaneous rather than in the extensor tendon sheaths. 3. Small flexor tendon sheath fluid of each finger. Assessment and Plan Plan ACUTE CELLULITIS of Right and left hand due to dog bite injury , called micro, culture will be ready in am, cont iv abx for now. ACUTE OPEN FRACTURE and NAIL BED TRAUMA RIGHT 3rd finger, LEFT 5th finger PIP SUBLUXATION AND VOLAR PLATE INJURY POD 1 Closed treatment of left small finger proximal interphalangeal dislocation, Right middle finger irrigation and debridement of open fracture including skin, subcutaneous tissue and bone, Right middle finger nail bed repair, Right middle finger closed treatment of distal phalanx fracture, Left small finger examination under fluoroscopy continue pain control, elevation, wound care per ortho, and outpatient followup as instructed. ALCOHOL INTOXICATION - resolved, Blood alcohol level 282 on admission [facility] protocol no evidence of withdrawl currently Thiamine/multivitamin TOBACCO USE nicotine addiction- cessation counseled, makayla topically Progress Note: Quality VTE Deep Vein Thrombosis/Pulmonary Embolism Present on Admission: No
[2018-01-31] MEDS: Acetaminophen 325 MG Tablet PO PRN (20:26)
[2018-02-01] MEDS: Ketorolac Inj 30 MG/ML (IVP) Vial IV.PUSH PRN ×2 (00:11→08:18)
[2018-02-01] MEDS: Sod Chloride 0.9% Inj 1,000 ML IV.CONT SCH (03:44)
[2018-02-01] MEDS: Ampicillin/Sulbactam Inj 3 GM in Sodium Chloride 0.9% Inj 100 ML IV.SIG SCH (05:00)
[2018-02-01 08:04] VITALS: BP 121/80; PULSE 62; RESP 17; TEMP 98.3; O2SAT 99
--- NOTE | 2018-02-01 08:08 | P.PNOP ---
Subjective Interval history: No acute overnight. Pain well controlled. Physical Exam Vital signs: Vital Signs 01/31/18 09:25 01/31/18 12:00 01/31/18 16:00 Temperature 98.3 F 98.5 F Pulse Rate 66 70 Respiratory Rate 17 18 17 Blood Pressure 113/63 118/68 Pulse Oximetry 98 98 01/31/18 20:00 02/01/18 00:00 02/01/18 08:00 Temperature 98.1 F 97.6 F 98.3 F Pulse Rate 64 63 62 Respiratory Rate 20 20 17 Blood Pressure 118/68 107/58 L 121/80 Pulse Oximetry 98 98 99 Intake & Output 01/31/18 02/01/18 02/01/18 18:59 06:59 18:59 Intake Total 2175 / 2175 1440 / 1440 Balance 2175 / 2175 1440 / 1440 Weight 68.9 kg Intake: IV 1200 / 1200 1200 / 1200 NS Inj 1,000 ML @ 100 mls/hr IV 1000 / 1000 1000 / 1000 .CONT .Q10H [facility] Rx#:[id number] Unasyn Inj 3 GM In NS Inj 100 200 / 200 200 / 200 ML @ 200 mls/hr IV.SIG Q6H [facility] Rx#:[id number] Oral 975 / 975 240 / 240 Other: # Voids 2 3 Date of Last Bowel Movement 01/29/18 # Bowel Movements 1 - Routine Extremities Exam Comments: Focused evaluation of bilateral upper extremities demonstrates dressings, clean dry and intact. Sensation intact to exposed digits to the median, radial, ulnar nerve distribution. Hands are warm well perfused. Results - Labs CBC & Chem 7: 01/29/18 23:05 01/29/18 23:05 Microbiology 01/29/18 23:05 Wound - Finger Gram Stain - Final 01/29/18 23:05 Wound - Finger Wound Culture - Preliminary Pasteurella species 01/29/18 23:05 Blood - Peripheral Aerobic Blood Culture - Preliminary No growth in 2 days 01/29/18 23:05 Blood - Peripheral Anaerobic Blood Culture - Preliminary No growth in 2 days 01/29/18 23:00 Blood - Peripheral Aerobic Blood Culture - Preliminary No growth in 2 days 01/29/18 23:00 Blood - Peripheral Anaerobic Blood Culture - Preliminary No growth in 2 days Assessment and Plan - Assessment and Plan DIAGNOSES: 1. Bilateral hand dog bites with multiple lacerations. 2. Bilateral hand cellulitis secondary to dog bites. 3. Left small finger proximal interphalangeal joint subluxation with volar plate injury. 4. Right middle finger open distal phalanx fracture with nail bed injury. OPERATION PERFORMED: 1. Closed treatment of left small finger proximal interphalangeal dislocation. 2. Right middle finger irrigation and debridement of open fracture including skin, subcutaneous tissue and bone. 3. Right middle finger nail bed repair. 4. Right middle finger closed treatment of distal phalanx fracture. 5. Left small finger examination under fluoroscopy. 1. Strict nonweightbearing to the left upper extremity, 5-pound weightbearing to the right upper extremity. Plans for change left dorsal blocking splint today. 2. Maintain upper extremity elevation for edema control. 3. Continue IV antibiotics with transition to an oral regimen pending medicine recommendations for treatment of superimposed cellulitis. Wound culture FROM ER significant for Pasteurella. 4. Maintain postoperative dressings to the bilateral hands intact. Do not remove the dressings. Do not get the dressings wet. 5. Plan for discharge pending medicine clearance with oral antibiotics. A prescription for [place], dispense #30, has been provided and is on the chart. 6. Additionally discharge instructions from a hand surgery standpoint are in printed form on the chart. 7. Plan for a followup with Dr. Roach in 7 days. A referral for hand therapy at [facility] has been provided with anticipated followup in 3-5 days for transition to a custom made splint on the left and a custom made splint on the right with initiation of a range of motion program. All questions and concerns were addressed at bedside.] 8. MRI reviewed. No evidence of FDS injury to SF.
[2018-02-01] MEDS: Folic Acid 1 MG Tablet PO SCH (08:19)
[2018-02-01] MEDS: Senna/Docusate Sodium 8.6/50 MG Tablet PO SCH (08:19)
[2018-02-01] MEDS: Multivitamin/Minerals Therapeutic Tablet PO SCH (08:19)
== END 2018-02-01 12:07 | disposition home or self-care (01) ==
LOC: NEPC 22:22 → NEDA 01-30 02:02 → N07 01-30 02:51
PROVIDERS: ADMIT Internal Medicine; ATTEND Internal Medicine